=== PATIENT | female | born 1960 | race Caucasian/White ===

== ENCOUNTER 2016-11-29 10:52 | Outpatient (CLI) | payer OTHER | END 2016-11-29 10:53 | LOC: LABRHC 10:52 | PROVIDERS: ATTEND Family Medicine | DX: N39.0 Urinary tract infection, site not specified (principal) | CPT/HCPCS: 87086 ==

== ENCOUNTER 2017-11-09 08:10 | Outpatient (CLI) | payer OTHER ==
[2017-11-09 09:30] LABS: eGFR (African) > 60; eGFR (Non-African) > 60
== END 2017-11-09 08:11 ==
LOC: LAB 08:10
PROVIDERS: ATTEND Family Medicine
DX: Z00.00 Encounter for general adult medical examination without abnormal findings (principal); I10 Essential (primary) hypertension
CPT/HCPCS: 36415; 80053; 80061

== ENCOUNTER 2019-01-01 10:19 | Outpatient (CLI) | payer OTHER ==
[2019-01-01 11:27] LABS: eGFR (Non-African) > 60
[2019-01-02 08:35] LABS: MEAN CORPUSCULAR HEMOGLOBIN 29.6 pg (28.0-34.0)
== END 2019-01-01 10:20 ==
LOC: LAB 10:19
PROVIDERS: ATTEND Family Medicine
DX: Z00.00 Encounter for general adult medical examination without abnormal findings (principal); Z13.0 Encounter for screening for diseases of the blood and blood-forming organs and certain disorders involving the immune mechanism; Z13.220 Encounter for screening for lipoid disorders; Z79.899 Other long term (current) drug therapy
CPT/HCPCS: 36415; 80053; 80061; 85027

== ENCOUNTER 2019-03-12 16:57 | Outpatient (CLI) | payer OTHER | END 2019-03-12 17:00 | LOC: LABRHC 16:57 | PROVIDERS: ATTEND Family Medicine | DX: Z13.89 Encounter for screening for other disorder (principal) | CPT/HCPCS: 87086 ==